=== PATIENT | male | born 1985 | race Caucasian/White ===

== ENCOUNTER 2023-06-16 18:16 | Inpatient (IN) ==
[2023-06-16 20:34] LABS: Albumin 4.2 g/dL (3.2-5.2); Albumin/Globulin Ratio 1.4 (1-3); Calcium 9.2 mg/dL (8.6-10.3); Creatinine, Serum 1.01 mg/dL (0.67-1.17); Potassium 3.9 mmol/L (3.5-5.0); Total Bilirubin 0.3 mg/dL (0.2-1.0); Total Protein 7.2 g/dL (6.4-8.9); eGFR CKD-EPI 98.2 (>60)
[2023-06-16 20:38] LABS: ABS Eosinophils 0.1 10^3/uL (0.0-0.5); ABS Monocytes 0.4 10^3/uL (0.0-1.1); ABS Neutrophils 3.4 10^3/uL (1.5-7.6); ABS Nucleated RBC 0.02 10^3/ul; Eosinophil % 1.6 %; Hematocrit 40.8 % (38-53); Hemoglobin 13.6 g/dL (13.2-16.3); Lymphocyte % 34.6 %; Mean Corpuscular Hemoglobin 30.7 pg (27-33); Mean Corpuscular Hgb Conc 33.3 g/dL (31-36); Mean Corpuscular Volume 92.3 fL (80-97); Nucleated Red Blood Cells % 0.4 %/100WBC (0.0-0.8); Platelet Count 149 10^3/uL (150-450); Red Blood Count 4.42 10^6/uL (4.06-5.63); Red Cell Distribution Width 13.8 % (12-17); White Blood Count 5.9 10^3/uL (3.6-10.2)
[2023-06-16 23:52] LABS: Urine Benzodiazepine Screen None Detected (None Detect); Urine Cannabinoids Screen None Detected (None Detect); Urine Opiates Screen None Detected (None Detect)
[2023-06-17] MEDS: Nicotine Lozenge mini 4 MG LOZNG.MINI MT PRN ×2 (00:27→21:13)
[2023-06-17 03:38] LABS: Urine Appearance Cloudy; Urine Bilirubin Negative (Negative); Urine Blood Negative (Negative); Urine Color Amber; Urine Glucose Negative (Negative); Urine Ketones Negative (Negative); Urine Nitrite Negative (Negative); Urine Protein Negative (Negative); Urine Specific Gravity 1.032 (1.002-1.030); Urine Urobilinogen Negative (Negative)
[2023-06-17] MEDS ORDERED: Al Hydrox/Mg Hydrox/Simet LIQ 30 ML UDC PO PRN (08:17)
[2023-06-17 09:10] LABS: Urine Benzodiazepine Screen None Detected (None Detect); Urine Buprenorphine Screen Presumptive Positive (None Detect); Urine Cannabinoids Screen None Detected (None Detect); Urine Fentanyl Screen None Detected (None Detect); Urine Hydrocodone Screen None Detected (None Detect); Urine Opiates Screen None Detected (None Detect)
[2023-06-17 09:18] LABS: Rapid COVID-19 Molecular Undetected (Undetected)
[2023-06-17] MEDS ORDERED: Polyethylene Glycol 3350 17 GM PACKET PO PRN (09:53)
[2023-06-17] MEDS ORDERED: Calcium Carb (TUMS) 500 mg CHEW TAB PO PRN ×2 (09:53→10:03)
[2023-06-17] MEDS ORDERED: Magnesium Hydroxide LIQ 30 ML UDC PO PRN (09:53)
[2023-06-17 09:59] LABS: Influenza A Molecular POSITIVE (Negative)
[2023-06-17] MEDS: Vitamin THERAPEUTIC TAB PO SCH (12:18)
[2023-06-17] MEDS: Buprenorp/Nalox 8-2 MG FILM SL SCH (12:22)
[2023-06-17] MEDS: FluvoxaMINE 50 mg TAB (NF) PO SCH (12:22)
[2023-06-17] MEDS: Nicotine PATCH 21 MG/24 HR PATCH TRANSDERM SCH (12:23)
[2023-06-17] MEDS: Saline NASAL SPRAY 0.65% BTL BOTH NARES PRN (22:57)
[2023-06-18] MEDS: Nicotine PATCH 21 MG/24 HR PATCH TRANSDERM SCH (07:58)
[2023-06-18] MEDS: Vitamin THERAPEUTIC TAB PO SCH (07:58)
[2023-06-18] MEDS: FluvoxaMINE 50 mg TAB (NF) PO SCH (08:02)
[2023-06-18] MEDS: Buprenorp/Nalox 8-2 MG FILM SL SCH (08:02)
[2023-06-18 09:57] LABS: HDL Cholesterol 22.2 mg/dL
[2023-06-18] MEDS: Nicotine Lozenge mini 4 MG LOZNG.MINI MT PRN ×2 (18:13→20:31)
[2023-06-18] MEDS: Nicotine GUM 4MG FRUIT FLAVOR PO PRN ×2 (19:47→23:08)
[2023-06-18] MEDS: Saline NASAL SPRAY 0.65% BTL BOTH NARES PRN (23:29)
[2023-06-19] MEDS ORDERED: Benztropine 2 mg AMP 1 MG/ML 2 ml AMP ONE (01:22)
[2023-06-19] MEDS ORDERED: Benztropine 2 mg AMP 1 MG/ML 2 ml AMP IM ONE (02:00)
[2023-06-19] MEDS: Nicotine Lozenge mini 4 MG LOZNG.MINI MT PRN ×4 (03:30→21:03)
[2023-06-19] MEDS: Nicotine GUM 4MG FRUIT FLAVOR PO PRN ×4 (05:30→22:37)
[2023-06-19] MEDS: Nicotine PATCH 21 MG/24 HR PATCH TRANSDERM SCH (07:55)
[2023-06-19] MEDS: Vitamin THERAPEUTIC TAB PO SCH (07:55)
[2023-06-19] MEDS: FluvoxaMINE 50 mg TAB (NF) PO SCH ×2 (07:55→08:01)
[2023-06-19] MEDS: Buprenorp/Nalox 8-2 MG FILM SL SCH (07:56)
[2023-06-19 10:28] VITALS: BP 124/76
[2023-06-20] MEDS: Saline NASAL SPRAY 0.65% BTL BOTH NARES PRN (01:02)
[2023-06-20] MEDS: Nicotine Lozenge mini 4 MG LOZNG.MINI MT PRN ×4 (01:04→22:59)
[2023-06-20] MEDS: FluvoxaMINE 50 mg TAB (NF) PO SCH (08:53)
[2023-06-20] MEDS: Vitamin THERAPEUTIC TAB PO SCH (08:54)
[2023-06-20] MEDS: Buprenorp/Nalox 8-2 MG FILM SL SCH (08:55)
[2023-06-20] MEDS: Nicotine PATCH 21 MG/24 HR PATCH TRANSDERM SCH (08:59)
[2023-06-20] MEDS: Nicotine GUM 4MG FRUIT FLAVOR PO PRN ×2 (17:30→22:59)
[2023-06-21] MEDS: Vitamin THERAPEUTIC TAB PO SCH (08:46)
[2023-06-21] MEDS: Buprenorp/Nalox 8-2 MG FILM SL SCH (08:46)
[2023-06-21] MEDS: Nicotine PATCH 21 MG/24 HR PATCH TRANSDERM SCH (08:46)
[2023-06-21] MEDS ORDERED: CMCS: FluvoxaMINE 50 mg TAB (NF) PO SCH (09:00)
[2023-06-21] MEDS: Nicotine Lozenge mini 4 MG LOZNG.MINI MT PRN (09:58)
[2023-06-22] MEDS ORDERED: FluvoxaMINE 50 mg TAB (NF) PO SCH (09:00)
== END 2023-06-21 12:05 | DRG 773 ==
LOC: ED 18:16 → BSU 06-17 08:17 → EDHOLD 06-17 08:17 → BSU 06-17 10:45
PROVIDERS: ADMIT Psychiatry & Neurology Psychiatry; ATTEND Psychiatry & Neurology Psychiatry